=== PATIENT | female | born 2000 | race Hispanic/Latino ===

== ENCOUNTER 2022-08-10 01:35 | Emergency (ER) | payer OTHER | END 2022-08-10 05:17 | disposition left against medical advice (07) | LOC: ERS 01:35 | DX: Z53.21 Procedure and treatment not carried out due to patient leaving prior to being seen by health care provider (principal) ==

== ENCOUNTER 2023-02-02 04:07 | Emergency (ER) | payer OTHER | END 2023-02-02 05:20 | disposition left against medical advice (07) | LOC: ERS 04:07 | DX: Z53.21 Procedure and treatment not carried out due to patient leaving prior to being seen by health care provider (principal) ==

== ENCOUNTER 2025-07-24 19:26 | Emergency (ER) | payer MEDICAID, SELFPAY ==
[2025-07-24] MEDS ORDERED: cefTRIAXone (ROCEPHIN) 1 GM VIAL ONE (20:53)
[2025-07-25 14:35] LABS: Chlamydia by PCR, Vaginal Swab Not Detected (NotDetected); GC by PCR, Vaginal Swab Not Detected (NotDetected)
== END 2025-07-24 21:15 | disposition home or self-care (01) ==
LOC: ERS 19:26
DX: N76.0 Acute vaginitis (principal); B96.89 Other specified bacterial agents as the cause of diseases classified elsewhere; B37.31 Acute candidiasis of vulva and vagina; Z20.2 Contact with and (suspected) exposure to infections with a predominantly sexual mode of transmission
CPT/HCPCS: 87480; 87491; 87510; 87591; 87660; J0696